=== PATIENT | female | born 1945 | race African-American/Black ===

== ENCOUNTER 2023-01-09 09:48 | Emergency (ER) | payer OTHER, MEDICAID | END 2023-01-09 10:44 | disposition home or self-care (01) | LOC: CSHERS 09:48 | DX: R04.0 Epistaxis (principal); E11.9 Type 2 diabetes mellitus without complications; E78.5 Hyperlipidemia, unspecified; I10 Essential (primary) hypertension | CPT/HCPCS: 99283 ==